=== PATIENT | female | born 1970 | race Caucasian/White ===

== ENCOUNTER 2022-11-14 09:36 | Emergency (ER) | payer BC ==
[2022-11-14] MEDS ORDERED: Ringers Lactate 1,000 ML IV ONE (10:03)
[2022-11-14 10:13] LABS: Absolute Lymphocytes (CBC) 1.6 K/uL (0.7-4.9); Hematocrit 34.8 % (36.0-45.0); Lymphocytes % 20.3 % (15.3-44.8); MCV 89.2 fL (80-100); MPV 8.8 fL (7.6-11.3)
[2022-11-14 10:26] LABS: Troponin High Sensitivity 14.4 pg/mL (<58.9)
--- NOTE | 2022-11-14 10:43 | RAD REPORT ---
EXAM DESCRIPTION: RAD - Chest Single View - 11/14/2022 10:25 am CLINICAL HISTORY: syncope COMPARISON: None TECHNIQUE: AP portable chest image was obtained 11/14/2022 10:25 am . FINDINGS: Lungs are clear. Heart and vasculature are normal. No measurable pleural effusion and no p neumothorax. No acute bone finding. Thoracolumbar scoliosis is present only partially evaluated on po rtable chest imaging. No acute aortic findings suspected. IMPRESSION: No acute cardiopulmonary process.
--- NOTE | 2022-11-14 11:05 | RAD REPORT ---
EXAM DESCRIPTION: CT - CTHCSPWOC - 11/14/2022 10:41 am CLINICAL HISTORY: syncope, head injury COMPARISON: No comparisons TECHNIQUE: Axial 5 mm thick images of the head were obtained. Axial 2 mm thick images of the cervic al spine were obtained with sagittal and coronal reconstruction images generated and reviewed. All CT scans are performed using dose optimization technique as appropriate and may include automated exposure control or mA/KV adjustment according to patient size. FINDINGS: No intracranial hemorrhage, mass, edema or acute intracranial finding. No suspicion for ac craig infarction. No extra-axial fluid collections. Mastoid air cells and paranasal sinuses are clear. No globe or orbit abnormality seen. Cervical body height and alignment are normal. C5-6 and C6-7 disc spaces show moderate disc space rivka rowing. Mild disc space narrowing seen at C4-5. Levels of disc disease also have endplate spurring wi th mild bony foraminal encroachment at multiple levels. Facet joint alignment is normal. No fracture or acute bony abnormality. Central canal detail is inherently limited. No paraspinal mass or hematoma. IMPRESSION: Negative CT head examination for acute or significant finding. Cervical spine degenerative change as detailed. No acute finding identifiable.
[2022-11-14] MEDS ORDERED: POTASSIUM 25 MEQ EFFERV TAB ONE (11:38)
--- NOTE | 2022-11-14 12:55 | ER ---
Nurse's Notes [facility] Name: Luz English Age: 52 yrs Sex: Female : 1970 Arrival Date: 11/14/2022 Time: 09:39 Bed 8 Private MD: Diagnosis: Syncope Presentation: 11/14 09:39 Chief complaint: EMS states: Syncopal episode while at work. Initial BP obtained by ss employees was 68/33. When EMS arrived, BP was 102/53. Pt c/o pain to back of head 4/10 and feeling tired. Pt states that this happens when she does not drink enough water the day prior. Coronavirus screen: Client denies travel out of the [place] in the last 14 days. Ebola Screen: Patient denies exposure to infectious person. Patient denies travel to an Ebola-affected area in the 21 days before illness onset. Initial Sepsis Screen: Does the patient meet any 2 criteria? No. Patient's initial sepsis screen is negative. Does the patient have a suspected source of infection? No. Patient's initial sepsis screen is negative. Risk Assessment: Do you want to hurt yourself or someone else? Patient reports no desire to harm self or others. Onset of symptoms was November 14, 2022. 09:39 Method Of Arrival: Ambulatory 09:39 Acuity: JOSE 3 Triage Assessment: 13:07 General: Appears in no apparent distress. uncomfortable, Behavior is calm, cooperative, ko1 appropriate for age. Neuro: Reports. 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 - Social history:: Smoking status: Patient denies any tobacco usage or history of. Screenin:50 [facility] ED Fall Risk Assessment (Adult) History of falling in the last 3 months, jl7 including since admission Yes- physiologic fall (2 pts) Confusion or Disorientation No (0 pts) Intoxicated or Sedated No (0 pts) Impaired Gait No (0 pts) Mobility Assist Device Used No (0 pt) Altered Elimination No (0 pt) Score/Fall Risk Level 0 - 2 = Low Risk Oriented to surroundings, Maintained a safe environment. Abuse screen: Denies threats or abuse. Denies injuries from another. Nutritional screening: No deficits noted. Tuberculosis screening: No symptoms or risk factors identified. Assessment: 09:50 General: Appears in no apparent distress. uncomfortable, Behavior is calm, cooperative, jl7 appropriate for age. Pain: Complains of pain in head Pain currently is 4 out of 10 on a pain scale. Neuro: Level of Consciousness is awake, alert, obeys commands, Oriented to person, place, time, situation. Cardiovascular: Patient's skin is warm and dry. Rhythm is regular. Respiratory: Airway is patent Respiratory effort is even, unlabored, Respiratory pattern is regular, symmetrical. Derm: Skin is pink, warm \T\ dry. 11:17 Reassessment: Patient appears in no apparent distress at this time. Patient and/or jl7 family updated on plan of care and expected duration. Pain level reassessed. Patient is alert, oriented x 3, equal unlabored respirations, skin warm/dry/pink. Patient states feeling better. Patient states symptoms have improved. 12:27 Reassessment: Pt ambulated to restroom without difficulty. General: Appears in no mb9 apparent distress. comfortable, Behavior is calm, cooperative, appropriate for age. Pain: Denies pain. Neuro: Level of Consciousness is awake, alert, obeys commands, Oriented to person, place, time, situation. Cardiovascular: Patient's skin is warm and dry. Respiratory: Airway is patent Respiratory effort is even, unlabored, Respiratory pattern is regular, symmetrical. GI: No signs and/or symptoms were reported involving the gastrointestinal system. : No signs and/or symptoms were reported regarding the genitourinary system. EENT: No signs and/or symptoms were reported regarding the EENT system. Derm: Skin is pink, warm \T\ dry. Musculoskeletal: Range of motion: intact in all extremities. Vital Signs: 09:39 BP 135 / 57; Pulse 75; Resp 14; Temp 97.9(O); Pulse Ox 99% on R/A; Weight 52.16 kg; ss Height 5 ft. 3 in. (160.02 cm); Pain 4/10; 10:07 BP 133 / 79; Pulse 74; Resp 15; Pulse Ox 100% ; jl7 11:17 BP 120 / 77; Pulse 79; Resp 15; Pulse Ox 100% ; jl7 12:24 BP 142 / 77; Pulse 76; Resp 18; Pulse Ox 99% ; ko1 09:39 Body Mass Index 20.37 (52.16 kg, 160.02 cm) ED Course: 09:39 Patient arrived in ED. 09:39 Taqueria Hoyt PA is PHCP. [facility] 09:39 Guanaco Ortiz DO is Attending Physician. [facility] 09:45 Triage completed. ss 09:45 Arm band placed on right wrist. 09:50 Veronika Silver RN is Primary Nurse. 7 09:50 Patient has correct armband on for positive identification. Placed in gown. Bed in low jl7 position. Call light in reach. Side rails up X2. Client placed on continuous cardiac and pulse oximetry monitoring. NIBP monitoring applied. 09:50 Initial lab(s) drawn, by co, sent to lab. EKG done, by ED staff, reviewed by Guanaco Ortiz DO. Maintain EMS IV. Dressing intact. Good blood return noted. Site clean \T\ dry. Gauge \T\ site: 18 Right AC. 10:27 XRAY Chest (1 view) In Process Unspecified. EDMS 10:42 CT Head C Spine In Process Unspecified. EDMS 12:00 Report received from STEFANIE Banda. mb9 12:28 No provider procedures requiring assistance completed. mb9 12:54 Paul Mccormick MD is Referral Physician. jmm 12:57 IV discontinued, intact, bleeding controlled, No redness/swelling at site. Pressure ko1 dressing applied. Administered Medications: 10:02 Drug: Lactated Ringers Solution 1000 ml Route: IV; Rate: 1000 bolus; Site: right jl7 antecubital; 11:17 Follow up: Response: No adverse reaction; IV Status: Completed infusion; IV Intake: jl7 1000ml 11:36 Drug: Potassium Effervescent Tablet 50 mEq Route: PO; ko1 Medication: 09:50 VIS not applicable for this client. jl7 Intake: 11:17 IV: 1000ml; Total: 1000ml. jl7 Outcome: 12:55 Discharge ordered by . jmm 12:57 Discharged to home ambulatory. ko1 12:57 Condition: improved 12:57 Discharge instructions given to patient, Instructed on discharge instructions, follow up and referral plans. Demonstrated understanding of instructions, follow-up care. 13:09 Patient left the ED. ko1 Signatures: Dispatcher [employer] EDMS Taqueria Hoyt PA PA jmm Smirch, Shelby, RN RN ss Veronika Silver RN RN jl7 Giulia He RN RN ko1 Brandi Montelongo RN RN mb9
--- NOTE | 2022-11-14 12:55 | EDPHYS ---
Physician Documentation [facility] Name: Luz English Age: 52 yrs Sex: Female : 1970 Arrival Date: 11/14/2022 Time: 09:39 Bed 8 Private MD: ED Physician Guanaco Ortiz HPI: 11/14 09:45 This 52 yrs old Female presents to ER via Ambulatory with complaints of Syncope. jmm 09:45 The patient has experienced syncope. Onset: The symptoms/episode began/occurred jm acutely, just prior to arrival. Duration: This was a single episode. Is a 52-year-old female with a history of hypertension, bipolar the presents emerged department after syncopal episode which occurred while at work. Patient states she did hit her head. Patient has had this happen to her in the past and attributes it to not drinking much water yesterday. Denies chest pain, denies shortness of breath.. 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 - Social history:: Smoking status: Patient denies any tobacco usage or history of. ROS: 09:45 Constitutional: Negative for fever, chills, and weight loss. jmm 09:45 Cardiovascular: Negative for chest pain, palpitations, and edema, Respiratory: Negative for shortness of breath, cough, wheezing, and pleuritic chest pain. 09:45 Neuro: Positive for headache, syncope. 09:45 All other systems are negative. Exam: 09:45 Constitutional: This is a well developed, well nourished patient who is awake, alert, jmm and in no acute distress. Head/Face: atraumatic. Eyes: EOMI, no conjunctival erythema appreciated ENT: Moist Mucus Membranes Neck: Trachea midline, Supple Chest/axilla: Normal chest wall appearance and motion. Cardiovascular: Regular rate and rhythm. No edema appreciated Respiratory: Normal respirations, no respiratory distress appreciated Abdomen/GI: Non distended Back: Normal ROM Skin: General appearance color normal MS/ Extremity: Moves all extremities, no obvious deformities appreciated, no edema noted to the lower extremities Neuro: Awake and alert Psych: Behavior is normal, Mood is normal, Patient is cooperative and pleasant 12:46 ECG was reviewed by the Attending Physician. [facility] Vital Signs: 09:39 BP 135 / 57; Pulse 75; Resp 14; Temp 97.9(O); Pulse Ox 99% on R/A; Weight 52.16 kg; ss Height 5 ft. 3 in. (160.02 cm); Pain 4/10; 10:07 BP 133 / 79; Pulse 74; Resp 15; Pulse Ox 100% ; jl7 11:17 BP 120 / 77; Pulse 79; Resp 15; Pulse Ox 100% ; jl7 12:24 BP 142 / 77; Pulse 76; Resp 18; Pulse Ox 99% ; ko1 09:39 Body Mass Index 20.37 (52.16 kg, 160.02 cm) ss MDM: 09:45 Patient medically screened. [facility] 12:53 Data reviewed: vital signs, nurses notes. Independent interpretation of the following [facility] test(s) in the Emergency Department X-Ray: My interpretation is No infiltrate appreciated. Counseling: I had a detailed discussion with the patient and/or guardian regarding: the historical points, exam findings, and any diagnostic results supporting the discharge/admit diagnosis, lab results, radiology results, the need for outpatient follow up, to return to the emergency department if symptoms worsen or persist or if there are any questions or concerns that arise at home. ED course: Patient states feeling much better. Labs and imaging studies did reveal some signs of dehydration. Patient advised to increase fluid intake and otherwise advised to follow-up with cardiology for further evaluation. Patient given strict return precautions.. 11/14 09:46 Order name: Basic Metabolic Panel; Complete Time: 10:30 [facility] 11/14 09:46 Order name: CBC with Diff; Complete Time: 10:20 [facility] 11/14 09:46 Order name: NT PRO-BNP; Complete Time: 10:30 [facility] 11/14 09:46 Order name: Troponin HS; Complete Time: 10:30 [facility] 11/14 09:46 Order name: XRAY Chest (1 view); Complete Time: 11:11 [facility] 11/14 09:46 Order name: D-Dimer; Complete Time: 10:22 [facility] 11/14 09:46 Order name: EKG; Complete Time: 09:47 [facility] 11/14 09:46 Order name: Cardiac monitoring; Complete Time: 09:50 [facility] 11/14 09:46 Order name: EKG - Nurse/Tech; Complete Time: 09:50 [facility] 11/14 09:46 Order name: IV Saline Lock; Complete Time: 09:50 [facility] 11/14 09:46 Order name: Labs collected and sent; Complete Time: 10:02 [facility] 11/14 10:22 Order name: CT Head C Spine; Complete Time: 11:36 [facility] 11/14 09:46 Order name: O2 Per Protocol; Complete Time: 09:50 [facility] 11/14 09:46 Order name: O2 Sat Monitoring; Complete Time: 09:50 jm EC:46 Rate is 69 beats/min. [place] interval is normal. QRS interval is normal. QT interval is jmm normal. T waves are Normal. No ST changes noted. Reviewed by me. Administered Medications: 10:02 Drug: Lactated Ringers Solution 1000 ml Route: IV; Rate: 1000 bolus; Site: right jl7 antecubital; 11:17 Follow up: Response: No adverse reaction; IV Status: Completed infusion; IV Intake: jl7 1000ml 11:36 Drug: Potassium Effervescent Tablet 50 mEq Route: PO; ko1 Disposition: 18:11 Co-signature as Attending Physician, Guanaco ORDONEZ was immediately available on-site ms3 in the Emergency Department for consultation in the care of the patient. Disposition Summary: 11/14/22 12:55 Discharge Ordered Location: Home [facility] Condition: Stable [facility] Diagnosis - Syncope [facility] Followup: [facility] - With: Paul Mccormick MD - When: 2 - 3 days - Reason: Recheck today's complaints, Continuance of care, Re-evaluation by your physician Discharge Instructions: - Discharge Summary Sheet [facility] - Syncope [facility] Forms: - Medication Reconciliation Form [facility] - Thank You Letter jmm - Antibiotic Education m - Work release form jmm - Prescription Opioid Use jm Signatures: Dispatcher [employer] EDMS Taqueria Hoyt PA PA jmm Smirch, Shelby, RN RN ss Leal, Jahala, RN RN jl7 Guanaco Ortiz DO DO ms3 Giulia He, RN RN ko1
[2022-11-14 13:13] VITALS: TEMP 97.9
[2022-11-14 13:16] VITALS: BP 142/77; O2SAT 99
== END 2022-11-14 13:09 | disposition home or self-care (01) ==
LOC: ER 09:36
DX: R55 Syncope and collapse (principal); R51.9 Headache, unspecified; I10 Essential (primary) hypertension; F31.9 Bipolar disorder, unspecified
CPT/HCPCS: 85025; 80048; 36415; 85379; 84484; 83880; 70450; 72125; 71045; J7120; 93005